=== PATIENT | female | born 1955 | race Two or more races ===

== ENCOUNTER 2023-01-11 11:49 | Emergency (ER) | payer MEDICARE, OTHER ==
[~2023-01-11] VITALS: Ht 154.9 cm; Wt 53.0 kg
[2023-01-11 12:18] VITALS: BP 172/98
[2023-01-11] MEDS ORDERED: ACET-1080 PO (14:24)
== END 2023-01-11 14:31 | disposition home or self-care (01) ==
LOC: ER 11:49
DX: S20.211A Contusion of right front wall of thorax, initial encounter (principal); V43.52XA Car driver injured in collision with other type car in traffic accident, initial encounter; Y93.89 Activity, other specified; Y92.410 Unspecified street and highway as the place of occurrence of the external cause; Y99.8 Other external cause status
CPT/HCPCS: 71046

== ENCOUNTER → 2024-11-12 | Outpatient (CLI) | payer MEDICARE, OTHER ==
[~2024-11-12] VITALS: Ht 154.9 cm; Wt 48.5 kg
[~2024-11-12] MED LIST: ACET-1080 PO
[2024-11-12] MEDS: REGADENOSON 0.4 MG/5 ML SYRG IV ONE ×2 (10:00→10:04)
--- NOTE | 2024-11-13 12:12 | DVHSR ---
APPROVED REPORT Exam: Nuclear Stress Test Indication: palpatations, tachycardia BMI: 0 Medical History Medical History: HLD, DM Stress Test Details Stress Test: Pharmacologic stress testing performed using 0.4 mg of regadenoson per 5 mL given IV ov er 10 seconds. HR Resting HR: 56 bpmMax Heart Rate (APMHR): 150.486847 bpm Max HR Achieved: 86 bpmTarget HR (85% APMHR): 127.102889 bpm % of APMHR: 57.33 Recovery HR: 64 bpm BP Resting BP: 142/69 mmHg Recovery BP: 117/60 mmHg ECG Resting ECG: Sinus Rhythm Clinical Reason for Termination: Completed protocol Stress ECG Conclusion lvef 76% normal perfusion scan NM EXAM: Myocardial Perfusion REST/STRESS Imaging Protocol: Rest Tc-99m/Stress Tc-99m 1 day Resting Data Rest SPECT myocardial perfusion imaging was performed in supine position 60 minutes following the int ravenous injection of 13 mCi of Tc-99m Sestamibi. Time of rest injection: 0830 Time of rest imagin Administration Route: IV Administration Site: Left Arm Pharmacologic Stress Pharmacologic stress test was performed by injecting Regadenoson 0.4 mg IV push followed by the intra venous injection of 31 mCi of Tc-99m Sestamibi. Time of stress injection: 1043 Time of stress imagin Administration Route: IV Administration Site: Left Arm Gated Stress SPECT was performed 60 minutes after stress injection. The images were gated to evaluate regional wall motion and calculate left ventricular ejection fracti on. Stress only was performed in the Supine position. Nuclear Conclusion Nuclear Findings: negative for ischemia lvef 76% normal perfusion scan
== END | disposition home or self-care (01) ==
LOC: XYW 08:17
PROVIDERS: ATTEND Internal Medicine
DX: R00.2 Palpitations (principal); R00.0 Tachycardia, unspecified; E11.9 Type 2 diabetes mellitus without complications; E78.5 Hyperlipidemia, unspecified
CPT/HCPCS: 78452; 93017; A9500; J2785